=== PATIENT | male | born 1950 | race African-American/Black ===

== ENCOUNTER 2018-01-17 20:04 | Observation (INO) | payer BC, OTHER | END 2018-01-18 06:30 | disposition home or self-care (01) | LOC: FER 20:04 → FM/S 22:30 | PROVIDERS: ADMIT Internal Medicine | CPT/HCPCS: 36415; 70450-TC; 71045-TC-FY; 80048; 80053; 80061; 81003; 81015; 82550; 82962; 83036; 84484; 85025; 93005; 93880-TC; 99285-25; G0378 ==

== ENCOUNTER 2018-07-29 07:13 | Day surgery (SDC) | payer BC ==
[2018-07-28 16:32] VITALS: BMI 28.3
[2018-07-29] MEDS ORDERED: LIDOCAINE HCL 1%, 10 MG/ML (20ML VIAL) ONE (07:45)
[2018-07-29] MEDS ORDERED: HEPARIN NA (PORCINE) 5,000 UNITS/ML 1ML VIAL ONE (07:45)
[2018-07-29] MEDS ORDERED: ONDANSETRON 4 MG/2 ML VIAL IVPUSH PRN (08:57)
[2018-07-29] MEDS ORDERED: LACTATED RINGERS SOLUTION 1,000 ML IV SCH (09:00)
[2018-07-29] MEDS ORDERED: MIDAZOLAM HCL 2 MG/2 ML SINGLE DOSE VIAL ONE ×2 (09:05)
[2018-07-29] MEDS ORDERED: ceFAZolin SODIUM 1 GM VIAL IVPB ONE (09:10)
[2018-07-29] MEDS ORDERED: LIDOCAINE HCL 1%, 10 MG/ML (20ML VIAL) NR ONE (09:26)
[2018-07-29] MEDS ORDERED: PROPOFOL 20 ML ONE (09:28)
--- NOTE | 2018-07-29 09:49 | HP ---
Admitting History and Physical - Admission Chief Complaint: right lower extremity claudication less than one block. Limitations to Obtaining History: No Limitations - Smoking History Smoking history: Former smoker Have you smoked in the past 12 months: No Aproximately how many cigarettes per day: 0 If you are a former smoker, when did you quit?: 30yrs ago - Alcohol/Substance Use Hx Alcohol Use: No Home Medications - Allergies Allergies/Adverse Reactions: Allergies Allergy/AdvReac Type Severity Reaction Status Date / Time No Known Allergies Allergy Verified 07/29/18 08:31 - Home Medications Home Medications: Ambulatory Orders Aspirin [Aspirin EC] 81 mg PO DAILY 01/17/18 Amlodipine Besylate 5 mg PO DAILY 07/28/18 Atorvastatin Ca [Lipitor] 10 mg PO HS 07/28/18 Cholecalciferol (Vitamin D3) [Vitamin D] 2,000 unit PO DAILY 07/28/18 Finasteride 5 mg PO DAILY 07/28/18 Gabapentin 100 mg PO DAILY 07/28/18 Glipizide/Metformin HCl [Glipizide-Metformin 5-500 mg] 1 each PO BID 07/28/18 Metoprolol Succinate 50 mg PO BID 07/28/18 Olmesartan Medoxomil [Benicar (Nf)] 40 mg PO DAILY 07/28/18 Spironolactone 25 mg PO BID 07/28/18 Review of Systems - Review of Systems Constitutional: reports: No Symptoms Eyes: reports: No Symptoms HENT: reports: No Symptoms Neck: reports: No Symptoms Cardiovascular: reports: No Symptoms Respiratory: reports: No Symptoms Gastrointestinal: reports: No Symptoms Genitourinary: reports: No Symptoms Musculoskeletal: reports: No Symptoms Integumentary: reports: No Symptoms Neurological: reports: No Symptoms Hematology/Lymphatic: reports: No Symptoms Psychiatric: reports: No Symptoms Physical Examination Vital Signs: Vital Signs Temperature 98.0 F 07/29/18 08:31 Pulse Rate 76 07/29/18 08:31 Respiratory Rate 20 07/29/18 08:31 Blood Pressure 151/87 07/29/18 08:31 O2 Sat by Pulse Oximetry (%) 100 07/29/18 08:20 Constitutional: Yes: Well Nourished, No Distress, Calm Eyes: Yes: WNL, Conjunctiva Clear, EOM Intact HENT: Yes: WNL, Atraumatic, Normocephalic Neck: Yes: WNL, Supple, Trachea Midline Cardiovascular: Yes: WNL, Regular Rate and Rhythm Respiratory: Yes: WNL, Regular, CTA Bilaterally Gastrointestinal: Yes: WNL, Normal Bowel Sounds Musculoskeletal: Yes: WNL Extremities: Yes: WNL Edema: No Peripheral Pulses WNL: No Integumentary: Yes: WNL Neurological: Yes: WNL, Alert, Oriented ...Motor Strength: WNL Psychiatric: Yes: WNL Problem List - Problems (1) Claudication of right lower extremity Assessment/Plan: Claudication right lower extremity 1. For angiogram today Code(s): I73.9 - PERIPHERAL VASCULAR DISEASE, UNSPECIFIED
--- NOTE | 2018-07-29 09:51 | OP ---
Operative Note - Note: Operative Date: 07/29/18 Pre-Operative Diagnosis: Right lower extremity claudication Operation: Aortogram, RLE angiogram Findings: SFA occlusion from origin. Artery comes back mid thigh. Popliteal artery is open Needs retrograde access from popliteal artery to open prox SFA Post-Operative Diagnosis: Same as Pre-op Surgeon: Ulises Hammond Anesthesia: Fractional Estimated Blood Loss (mls): 50 Operative Report Dictated: Yes
[2018-07-29 10:19] VITALS: TEMP 98.1
[2018-07-29] MEDS ORDERED: ACETAMINOPHEN 325 MG TABLET (FP) PO ONE (11:30)
[2018-07-29] MEDS ORDERED: ACETAMINOPHEN 325 MG TABLET (FP) ONE (11:31)
[2018-07-29 12:18] VITALS: BP 152/71; PULSE 69
[2018-07-29] MEDS ORDERED: IBUPROFEN 400 MG TABLET (FP) PO ONE ×2 (12:30→12:33)
--- NOTE | 2018-08-05 12:58 | OP ---
DATE OF OPERATION: 07/29/2018 PREOPERATIVE DIAGNOSIS: Right lower extremity claudication. POSTOPERATIVE DIAGNOSIS: Right lower extremity claudication. PROCEDURE: Aortogram, right lower extremity angiogram. SURGEON: Ulises Wheeler MD ANESTHESIA: Fractional. BLOOD LOSS: 10 mL. INDICATIONS: The patient is a 68-year-old male who has right lower extremity claudication. Preoperative ultrasound showed that he has severe SFA disease with occlusion. Patient came into ambulatory surgery. Patient was consented for the procedure understanding all risks, benefits, and alternatives and then taken to the operating room. PROCEDURE IN DETAIL: Once in the operating room, he was placed on the operating table in the supine manner, and the area of left and right groin were prepped and draped in the sterile surgical manner. We then injected 10 mL of lidocaine 1% over the left common femoral artery. We then went ahead, and using a micropuncture needle, punctured the left common femoral artery. A micropuncture wire inserted, micropuncture sheath was inserted, and a traditional 5-[place] sheath was inserted. We then placed a 0.035 floppy guidewire up into the aorta followed by an Omni Flush catheter. We then shot an angiogram via hand injection showing that the aorta and the iliac arteries were without any disease. We then placed our 0.035 floppy guidewire up and over to the right common femoral artery, and our Omni Flush catheter followed. We then shot an angiogram of the right lower extremity showing that the common femoral artery and the profunda were patent. The SFA was occluded from its origin. There was no nub, and the SFA came back in the distal portion, and patient had 2-vessel runoff. At this point, we tried multiple times, but we could not get into the SFA since there was no nub or there was no origin that could be cannulated. At this point, we decided that no more intervention could be performed. Patient would have to come back and need retrograde popliteal access in order to open the SFA. At this point, we brought our Omni Flush catheter up and over and out. We took out our sheath from the left groin. Pressure was held for 5 minutes, after which there was no more bleeding. The area was wet and dried, and Dermabond was placed. The patient tolerated the procedure with no complications. Patient transferred to PACU in stable condition. ULISES WHEELER DO ANESTHESIOLOGIST ASSISTANT CERTIFIED/[id number]
== END 2018-07-29 12:46 | disposition home or self-care (01) ==
LOC: JASU-SURG 07:13
PROVIDERS: ATTEND Surgery Vascular Surgery
PROC: B41DYZZ Fluoroscopy of Aorta and Bilateral Lower Extremity Arteries using Other Contrast (ICD-10-PCS; principal; 2018-07-29 09:00)
DX: I70.211 Atherosclerosis of native arteries of extremities with intermittent claudication, right leg (principal); I10 Essential (primary) hypertension; E11.9 Type 2 diabetes mellitus without complications
CPT/HCPCS: 75716-TC-FY; 82962; 94760; J1644

== ENCOUNTER 2018-08-26 12:08 | Day surgery (SDC) | payer BC ==
[2018-08-24 15:36] VITALS: BMI 28.3
[2018-08-26] MEDS ORDERED: HEPARIN NA (PORCINE) 5,000 UNITS/ML 1ML VIAL ONE ×2 (15:52→16:39)
[2018-08-26] MEDS ORDERED: LIDOCAINE HCL 1%, 10 MG/ML (20ML VIAL) ONE (15:52)
[2018-08-26] MEDS ORDERED: MIDAZOLAM HCL 2 MG/2 ML SINGLE DOSE VIAL ONE ×2 (16:17→16:33)
[2018-08-26] MEDS ORDERED: LABETALOL HCL 5 MG/1 ML (100MG/20 ML VIAL) ONE (16:18)
[2018-08-26] MEDS ORDERED: ceFAZolin SODIUM 1 GM VIAL ONE (16:26)
[2018-08-26] MEDS ORDERED: ceFAZolin SODIUM 1 GM VIAL IVPB ONE (16:30)
[2018-08-26] MEDS ORDERED: LIDOCAINE HCL 1%, 10 MG/ML (50 mL VIAL) IJ ONE (16:54)
--- NOTE | 2018-08-26 17:30 | OP ---
Operative Note - Note: Operative Date: 08/26/18 Pre-Operative Diagnosis: RLE claudication Operation: RLE angiogram via popliteal artery approach Findings: SFA occlusion Post-Operative Diagnosis: Same as Pre-op Surgeon: Ulises Hammond Anesthesia: Fractional Estimated Blood Loss (mls): 20 Operative Report Dictated: Yes
--- NOTE | 2018-08-26 17:32 | HP ---
Admitting History and Physical - Admission Chief Complaint: RLE claudication less than one block Limitations to Obtaining History: No Limitations - Smoking History Smoking history: Former smoker Have you smoked in the past 12 months: No Aproximately how many cigarettes per day: 0 If you are a former smoker, when did you quit?: 30yrs ago - Alcohol/Substance Use Hx Alcohol Use: No Home Medications - Allergies Allergies/Adverse Reactions: Allergies Allergy/AdvReac Type Severity Reaction Status Date / Time No Known Allergies Allergy Verified 08/26/18 13:21 - Home Medications Home Medications: Ambulatory Orders Aspirin [Aspirin EC] 81 mg PO DAILY 01/17/18 Amlodipine Besylate 5 mg PO DAILY 07/28/18 Atorvastatin Ca [Lipitor] 10 mg PO HS 07/28/18 Cholecalciferol (Vitamin D3) [Vitamin D] 2,000 unit PO DAILY 07/28/18 Finasteride 5 mg PO DAILY 07/28/18 Gabapentin 100 mg PO DAILY 07/28/18 Glipizide/Metformin HCl [Glipizide-Metformin 5-500 mg] 1 each PO BID 07/28/18 Metoprolol Succinate 50 mg PO BID 07/28/18 Olmesartan Medoxomil [Benicar (Nf)] 40 mg PO DAILY 07/28/18 Spironolactone 25 mg PO BID 07/28/18 Review of Systems - Review of Systems Constitutional: reports: No Symptoms Eyes: reports: No Symptoms HENT: reports: No Symptoms Neck: reports: No Symptoms Cardiovascular: reports: No Symptoms Respiratory: reports: No Symptoms Gastrointestinal: reports: No Symptoms Genitourinary: reports: No Symptoms Musculoskeletal: reports: No Symptoms Integumentary: reports: No Symptoms Neurological: reports: No Symptoms Hematology/Lymphatic: reports: No Symptoms Psychiatric: reports: No Symptoms Physical Examination Vital Signs: Vital Signs Temperature 98.0 F 08/26/18 13:18 Pulse Rate 67 08/26/18 13:18 Respiratory Rate 18 08/26/18 13:18 Blood Pressure 169/63 08/26/18 13:18 O2 Sat by Pulse Oximetry (%) 99 08/26/18 13:20 Constitutional: Yes: Well Nourished, No Distress, Calm Eyes: Yes: WNL, Conjunctiva Clear, EOM Intact HENT: Yes: WNL, Atraumatic, Normocephalic Neck: Yes: WNL, Supple, Trachea Midline Cardiovascular: Yes: WNL, Regular Rate and Rhythm Respiratory: Yes: WNL, Regular, CTA Bilaterally Gastrointestinal: Yes: WNL, Normal Bowel Sounds Musculoskeletal: Yes: WNL Extremities: Yes: WNL Edema: No Peripheral Pulses WNL: No Integumentary: Yes: WNL Neurological: Yes: WNL, Alert, Oriented ...Motor Strength: WNL Psychiatric: Yes: WNL Problem List - Problems (1) Claudication of right lower extremity Assessment/Plan: For RLE angiogram today Code(s): I73.9 - PERIPHERAL VASCULAR DISEASE, UNSPECIFIED
[2018-08-26] MEDS ORDERED: ACETAMINOPHEN 325 MG TABLET (FP) PO PRN (17:44)
[2018-08-26] MEDS ORDERED: ONDANSETRON 4 MG/2 ML VIAL IVPUSH PRN (17:44)
[2018-08-26 20:58] VITALS: BP 175/69; PULSE 69
[2018-08-26 21:00] VITALS: TEMP 97.4
--- NOTE | 2018-09-21 10:17 | OP ---
DATE OF OPERATION: 08/26/2018 PREOPERATIVE DIAGNOSIS: Right lower extremity claudication. POSTOPERATIVE DIAGNOSIS: Right lower extremity claudication. PROCEDURE: Aortogram, right lower extremity angiogram. SURGEON: Ulises Wheeler DO ANESTHESIA: Fractional. BLOOD LOSS: 10 mL. INDICATIONS: The patient is a 68-year-old male that has right lower extremity claudication. It was decided that he would need a right lower extremity angiogram. Patient was consented for the procedure, understanding all risks, benefits, and alternatives. He was then taken to the operating room. DESCRIPTION OF PROCEDURE: Once in the operating room, he was laid on the operating table in supine manner, and the area of the right and left groin was prepped and draped in sterile surgical manner. We injected 10 mL of lidocaine 1% over the left common femoral artery. We then punctured left common femoral artery under ultrasound guidance. Micropuncture wire was inserted and Micropuncture sheath was inserted. A traditional 5-[place] sheath was inserted. A 0.035 floppy guidewire was inserted into the aorta, followed by an Omniflush catheter. We then shot an angiogram by hand injection, showing that the aorta and the iliac arteries were without any disease. We then went ahead and went up and over to the right common femoral artery. An Omniflush catheter followed. We then shot an angiogram of the right lower extremity showing that the common femoral artery, the profunda, the SFA, the popliteal artery were all patent. Patient had 1-vessel runoff into the foot. There was no stenosis to treat. There was no bypassable disease as well. Patient has microvascular disease in the foot due to his uncontrolled diabetes. No intervention was needed at this point. We removed our Omniflush catheter, removed our 5-[place] sheath from the left common femoral artery and pressure was held for 5 minutes. After there was no more bleeding, dressing was applied. . Patient tolerated the procedure with no complications. Patient was transferred to the PACU in stable condition. ULISES WHEELER DO ECOLOGIST TECHNICIAN/[id number]
== END 2018-08-26 19:10 | disposition home or self-care (01) ==
LOC: JASU-SURG 12:08
PROVIDERS: ATTEND Surgery Vascular Surgery
PROC: B41DYZZ Fluoroscopy of Aorta and Bilateral Lower Extremity Arteries using Other Contrast (ICD-10-PCS; principal; 2018-08-26 14:30)
DX: I70.211 Atherosclerosis of native arteries of extremities with intermittent claudication, right leg (principal); I10 Essential (primary) hypertension; E11.9 Type 2 diabetes mellitus without complications
CPT/HCPCS: 76000-TC-FY; 82962; 94760; J1644